=== PATIENT | male | born 1990 | race African-American/Black ===

== ENCOUNTER 2018-06-03 09:09 | Emergency (ER) | payer OTHER, SELFPAY ==
[2018-06-03] MEDS ORDERED: EPINEPHrine 1 MG/ML AMP ONE (09:47)
[2018-06-03] MEDS ORDERED: predniSONE 20 MG TAB ONE (10:48)
== END 2018-06-03 10:43 | disposition home or self-care (01) ==
LOC: ERS 09:09
DX: T63.461A Toxic effect of venom of wasps, accidental (unintentional), initial encounter (principal); J45.909 Unspecified asthma, uncomplicated; Z87.892 Personal history of anaphylaxis
CPT/HCPCS: 96372; J0171; J7506

== ENCOUNTER 2018-08-28 12:37 | Emergency (ER) | payer SELFPAY ==
[2018-08-28] MEDS ORDERED: Ondansetron ODT 4 MG TAB ONE (13:38)
--- NOTE | 2018-08-31 13:48 | EKG ---
Test Reason : SYNCOPE Blood Pressure : / mmHG Vent. Rate : 063 BPM Atrial Rate : 063 BPM P-R Int : 172 ms QRS Dur : 092 ms QT Int : 380 ms P-R-T Axes : 061 015 016 degrees QTc Int : 388 ms Normal sinus rhythm Normal ECG Confirmed by SOM CHUN ([id number]), photography editor MINDA GUNTER ([id number]) on 08/31/2018 1:47:51 PM Referred By: LAY Confirmed By:SOM CHUN
== END 2018-08-28 14:44 | disposition home or self-care (01) ==
LOC: ERS 12:37
DX: R11.2 Nausea with vomiting, unspecified (principal); R53.1 Weakness; J45.909 Unspecified asthma, uncomplicated
CPT/HCPCS: 87804; 93005; Q0162

== ENCOUNTER 2022-09-25 23:13 | Emergency (ER) | payer OTHER | END 2022-09-26 00:41 | disposition home or self-care (01) | LOC: ERS 23:13 | DX: S93.401A Sprain of unspecified ligament of right ankle, initial encounter (principal); V86.56XA Driver of dirt bike or motor/cross bike injured in nontraffic accident, initial encounter; Y93.55 Activity, bike riding ==